=== PATIENT | female | born 1990 | race Hispanic/Latino ===

== ENCOUNTER 2016-11-01 15:55 | Emergency (ER) | payer MEDICAID, SELFPAY ==
[2016-11-01] MEDS ORDERED: Ketorolac Tromethamine 60 MG/2 ML VIAL ONE (16:14)
[2016-11-01] MEDS ORDERED: Ondansetron ODT 4 MG TAB ONE (16:14)
== END 2016-11-01 16:40 | disposition home or self-care (01) ==
LOC: NAV ERS 15:55
DX: M79.602 Pain in left arm (principal); G44.209 Tension-type headache, unspecified, not intractable
CPT/HCPCS: 96372; J1885; Q0162

== ENCOUNTER 2017-08-25 22:11 | Emergency (ER) | payer SELFPAY | END 2017-08-25 22:40 | disposition home or self-care (01) | LOC: NAV ERS 22:11 | DX: J02.9 Acute pharyngitis, unspecified (principal) | CPT/HCPCS: 99282 ==

== ENCOUNTER 2017-11-10 22:43 | Emergency (ER) | payer SELFPAY | END 2017-11-10 23:47 | disposition home or self-care (01) | LOC: NAV ERS 22:43 | DX: J11.1 Influenza due to unidentified influenza virus with other respiratory manifestations (principal) | CPT/HCPCS: 87804; 99283 ==

== ENCOUNTER 2019-06-17 17:34 | Emergency (ER) | payer SELFPAY | END 2019-06-17 18:40 | disposition home or self-care (01) | LOC: NAV ERS 17:34 | DX: J10.1 Influenza due to other identified influenza virus with other respiratory manifestations (principal) | CPT/HCPCS: 87804; 99283 ==

== ENCOUNTER 2020-01-15 17:59 | Emergency (ER) | payer BC, OTHER ==
[2020-01-17 15:29] LABS: SARS-CoV-2 MS2 Positive; SARS-CoV-2 N Gene Negative; SARS-CoV-2 S Gene Negative; SARS-CoV-2 orf1ab Negative
== END 2020-01-15 18:54 | disposition home or self-care (01) ==
LOC: NAV ERS 17:59
DX: R06.00 Dyspnea, unspecified (principal); Z20.828 Contact with and (suspected) exposure to other viral communicable diseases; F32.9 Major depressive disorder, single episode, unspecified; F41.9 Anxiety disorder, unspecified
CPT/HCPCS: 87635; 99284; U0003